=== PATIENT | male | born 1965 | race African-American/Black ===

== ENCOUNTER 2019-01-18 08:39 | Day surgery (SDC) | payer OTHER ==
[2019-01-17 13:03] VITALS: BMI 46.8
[2019-01-18 09:03] LABS: #Eosinphils 0.3 thou/uL (0.0-0.7); #Lymphocytes 2.2 thou/uL (1.20-3.40); #Monocytes 0.7 thou/uL (0.11-0.59); #Neutrophils 3.6 thou/uL (1.40-6.50); %Basophils 0.6 % (0.0-1.0); %Eosinophils 4.2 % (0.0-10.0); %Lymphocytes 32.5 % (21.0-51.0); %Monocytes 9.8 % (0.0-10.0); Hemoglobin 15.9 g/dL (14.0-18.0); Mean Corpuscular HGB CONC 33.9 g/dL (32.0-36.0); Mean Corpuscular Hemoglobin 29.9 pg (27.0-31.0); Mean Platelet Volume 8.3 fL (7.4-10.4); Platelet Count 250 thou/uL (130-400); RBC Distribution Width 12.1 % (11.5-14.5); Red Blood Cell (RBC) Count 5.33 mill/uL (4.70-6.10); White Blood Cell (WBC) Count 6.7 thou/uL (4.8-10.8)
[2019-01-18 09:07] LABS: INR-International Normal Ratio 0.9; Prothrombin Time 12.5 SEC (12.0-14.7)
[2019-01-18 09:52] VITALS: BP 127/96; TEMP 97.2
--- NOTE | 2019-01-18 12:48 | CT ---
CT GUIDED BIOPSY LEFT RENAL MASS: COMPARISON: Outside imaging-Abdomen MRI. FINDINGS: Successful CT-guided biopsy. Lesional tissue is present. A total of two 17-gauge core biopsy sample s were obtained. TECHNIQUE: Consent obtained to perform a CT-guided percutaneous biopsy of a left renal mass. The patient was pl aced in a prone position on the CT gantry. The lesion was identified. The skin was marked. The patient was prepped and draped in a sterile fashion, and 1% lidocaine buffered with sodium bicarbonat e, was used for local anesthesia. Under CT guidance, a 17-gauge metallic trocar was advanced such that the tip was adjacent to the lower pole capsule. Given the patient's body size, the needle could not be purchased into the lower pole of the left kidney. Through this metallic trocar, a total of two 18-gauge core biopsy samples were obtained. Lesional tissue was present. The patient tolerated the procedure well. There was a small amount of perinephric bleeding. Gelfoam pledgets were used to maintain hemostasis. There were no significant post procedure complications. The patient tolerat ed the procedure well. Conscious sedation: Intravenous administration of 100 mcg of fentanyl and 2 mg of Versed. IMPRESSION: Successful CT guided percutaneous biopsy of a mass in the lower pole, left kidney. Lesional tissue w as present. Final pathologic diagnosis is pending. Transcribed Date/Time: 01/18/2019 1:30 PM
== END 2019-01-18 13:00 | disposition home or self-care (01) ==
LOC: CT 08:39
PROVIDERS: ATTEND Urology
PROC: 0TB13ZX Excision of Left Kidney, Percutaneous Approach, Diagnostic (ICD-10-PCS; principal; 2019-01-18)
DX: C64.2 Malignant neoplasm of left kidney, except renal pelvis (principal); I10 Essential (primary) hypertension; E78.00 Pure hypercholesterolemia, unspecified; E66.01 Morbid (severe) obesity due to excess calories; Z68.42 Body mass index [BMI] 45.0-49.9, adult; Z87.891 Personal history of nicotine dependence; Z79.899 Other long term (current) drug therapy
CPT/HCPCS: 50200; 77002; 85025; 85610; 85730; 88305; 88333; 88341; 88342

== ENCOUNTER 2019-01-21 09:43 | Outpatient (CLI) | payer OTHER ==
[~2019-01-21 09:43] MED LIST: Fentanyl 100 MCG/2 ML VIAL ONE; Midazolam HCl 2 mg/2 ml Vial ONE; Sodium Bicarbonate 2.5 MEQ/5 ML VIAL ONE
--- NOTE | 2019-01-21 13:41 | NM ---
WHOLE BODY BONE SCAN: Date: 01/21/19 HISTORY: Other specified disorders of kidney and ureter. Left renal cancer. RADIOPHARMACEUTICAL: 33 mCi technetium-99m MDP injected intravenously. FINDINGS: Increased uptake in the shoulders, acromioclavicular, wrists, and ankle joints are consistent with de generative changes. There are foci of mildly increased uptake in the costovertebral junctions in the thoracic spine consistent with degenerative changes. No other abnormal areas of tracer localization s een in the skeleton to suggest osseous metastatic disease. Tracer excretion is noted into the bladder . IMPRESSION: No scintigraphic evidence of osseous metastatic disease. POS: OFF
== END 2019-01-21 09:44 | disposition home or self-care (01) ==
LOC: NM 09:43
PROVIDERS: ATTEND Urology
DX: N28.89 Other specified disorders of kidney and ureter (principal)
CPT/HCPCS: 78306; A9503; J2250; J3010

== ENCOUNTER 2019-03-08 09:17 | Outpatient (CLI) | payer OTHER ==
--- NOTE | 2019-03-08 16:52 | RAD ---
XR Chest Pa Lat STANDARD HISTORY: Left renal cancer COMPARISON: None FINDINGS: The heart size is normal. The lungs are well expanded without focal areas of consolidation, pneumothorax or pleural effusions. There are degenerative changes in the spine. IMPRESSION: No radiographic evidence of acute cardiopulmonary process.
[2019-03-08 16:56] LABS: Hemoglobin 15.7 g/dL (14.0-18.0); Mean Corpuscular HGB CONC 33.8 g/dL (32.0-36.0); Mean Corpuscular Hemoglobin 29.6 pg (27.0-31.0); Mean Corpuscular Volume 87.6 fL (78.0-98.0); Mean Platelet Volume 8.7 fL (7.4-10.4); Platelet Count 257 thou/uL (130-400); RBC Distribution Width 11.8 % (11.5-14.5); Red Blood Cell (RBC) Count 5.32 mill/uL (4.70-6.10); White Blood Cell (WBC) Count 5.7 thou/uL (4.8-10.8)
[2019-03-08 16:57] LABS: Bacteria/HPF None Seen HPF (None Seen); Bilirubin Negative (Negative); Blood, Urine Negative (Negative); Clarity Clear (Clear); Glucose, Urine (Dipstick) Normal (Negative); Leukocyte Negative Leu/uL (Negative); Nitrite Negative (Negative); Protein, Urine (Dipstick) Negative (Neg-Trace); RBC/HPF 0-3 HPF (0-3); Squamous Epithelial None Seen HPF (0-3); Urobilinogen Normal mg/dL (Less than 2); WBC/HPF 0-3 HPF (0-3)
[2019-03-08 17:03] LABS: INR-International Normal Ratio 0.9; PTT 27.7 SEC (22.9-36.1); Prothrombin Time 12.5 SEC (12.0-14.7)
[2019-03-08 17:18] LABS: Anion Gap 12 mmol/L (10-20); BUN (Urea Nitrogen) 13 mg/dL (8.4-25.7); Calc. Creatinine Clearance 0 mL/min (70-130); Calcium 9.8 mg/dL (7.8-10.44); Carbon Dioxide 25 mmol/L (22-29); Chloride 106 mmol/L (98-107); Estimated GFR-MDRD 87; Glucose 130 mg/dL (70-105); Potassium 4.1 mmol/L (3.5-5.1); Sodium 139 mmol/L (136-145)
--- NOTE | 2019-03-11 16:59 | EKG ---
Test Reason : Blood Pressure : / mmHG Vent. Rate : 103 BPM Atrial Rate : 103 BPM P-R Int : 190 ms QRS Dur : 098 ms QT Int : 326 ms P-R-T Axes : 052 -37 -08 degrees QTc Int : 427 ms Sinus tachycardia Left axis deviation Anterior infarct , age undetermined Abnormal ECG No previous ECGs available Confirmed by ANGELIKA BRITTON, DR. Bowden ([id number]) on 03/11/2019 4:58:40 PM Referred By: KVNG Confirmed By:DR. Dennise CARNEY MD
== END 2019-03-08 09:18 | disposition home or self-care (01) ==
LOC: LABBT 09:17
PROVIDERS: ATTEND Urology
DX: Z01.818 Encounter for other preprocedural examination (principal); C64.9 Malignant neoplasm of unspecified kidney, except renal pelvis
CPT/HCPCS: 71046; 80048; 81001; 85027; 85610; 85730; 87086; 93005; 93010

== ENCOUNTER 2019-12-21 04:01 | Emergency (ER) | payer OTHER | END 2019-12-21 04:58 | disposition home or self-care (01) | LOC: ERS 04:01 | DX: R07.89 Other chest pain (principal); E78.5 Hyperlipidemia, unspecified; E78.00 Pure hypercholesterolemia, unspecified; I10 Essential (primary) hypertension; Z79.899 Other long term (current) drug therapy | CPT/HCPCS: 93005 ==

== ENCOUNTER 2020-06-22 14:58 | Outpatient (CLI) | payer OTHER ==
--- NOTE | 2020-06-22 15:36 | RAD ---
XR Chest Pa Lat STANDARD HISTORY: Renal cell carcinoma COMPARISON: 03/08/2019 FINDINGS: The heart size is normal. The lungs are well expanded without focal areas of consolidation, pneumothorax or pleural effusions. Degenerative changes in the spine are again seen.. IMPRESSION: No radiographic evidence of acute cardiopulmonary process.
--- NOTE | 2020-06-22 16:25 | CT ---
CT ABDOMEN AND PELVIS WITHOUT IV CONTRAST: Indications: Renal cell carcinoma. Patient is status post left nephrectomy due to renal cell carcinom a. Comparison: None FINDINGS: Lung bases are clear. Liver, spleen, and pancreas appear unremarkable. Stomach and duodenum unremarkable. Adrenal glands normal. The small and large bowel loops are unremarkable. Post left nephrectomy changes are noted. Right kidney is unremarkable. No hydronephrosis. No adenopat hy identified. Aorta normal caliber. Images through pelvis show mildly distended bladder which is unremarkable. Prostate size is upper nor mal. Review of the osseous structures show anterior compression deformity of the L2 vertebra. There is mil d posterior listhesis of L2. These changes result in central canal stenosis. Disc bulge at L2-3 with facet hypertrophy results in severe central canal stenosis. There is an umbilical hernia. There is an area of high density within the umbilical hernia sac within the subcutaneous tissues which could represent an area of omental infarction. The hernia sac measure s 4.4 cm. IMPRESSION: 1. Post left nephrectomy change. No adenopathy or evidence of current neoplasm. 2. Anterior wedging of the L2 vertebra with mild posterior listhesis. Severe central canal stenosis i s noted. Recommend clinical correlation and consider further evaluation of the spine as indicated. 3. Umbilical hernia with hernia sac and a focus of high density within the hernia sac as described ab ove. POS: AGW
== END 2020-06-22 14:59 | disposition home or self-care (01) ==
LOC: BICCT 14:58
PROVIDERS: ATTEND Urology
DX: C64.9 Malignant neoplasm of unspecified kidney, except renal pelvis (principal); K42.9 Umbilical hernia without obstruction or gangrene
CPT/HCPCS: 71046; 74176

== ENCOUNTER 2021-06-18 08:37 | Outpatient (CLI) | payer OTHER | END 2021-06-18 08:38 | disposition home or self-care (01) | LOC: BICCT 08:37 | PROVIDERS: ATTEND Urology | DX: C64.9 Malignant neoplasm of unspecified kidney, except renal pelvis (principal) | CPT/HCPCS: 71046; 74176 ==

== ENCOUNTER 2021-08-04 18:59 | Emergency (ER) | payer OTHER ==
[2021-08-04 19:37] LABS: #Eosinphils 0.2 thou/uL (0.0-0.7); #Lymphocytes 1.5 thou/uL (1.20-3.40); #Monocytes 0.5 thou/uL (0.11-0.59); #Neutrophils 2.4 thou/uL (1.40-6.50); %Basophils 1.1 % (0.0-1.0); %Eosinophils 4.9 % (0.0-10.0); %Lymphocytes 31.8 % (21.0-51.0); %Monocytes 10.9 % (0.0-10.0); %Neutrophils 51.4 % (42.0-75.0); Hemoglobin 14.8 g/dL (14.0-18.0); Mean Corpuscular Hemoglobin 30.4 pg (27.0-31.0); Mean Platelet Volume 7.7 fL (7.4-10.4); Platelet Count 212 thou/uL (130-400); RBC Distribution Width 11.7 % (11.5-14.5); Red Blood Cell (RBC) Count 4.86 mill/uL (4.70-6.10); White Blood Cell (WBC) Count 4.6 thou/uL (4.8-10.8)
[2021-08-04 20:03] LABS: ALT (SGPT) 59 U/L (8-55); AST (SGOT) 60 U/L (5-34); Albumin 4.1 g/dL (3.5-5.0); Alkaline Phosphatase 82 U/L (40-110); Anion Gap 14 mmol/L (10-20); BUN (Urea Nitrogen) 19 mg/dL (8.4-25.7); Bilirubin, Total 0.4 mg/dL (0.2-1.2); Calc. Creatinine Clearance 0 mL/min (70-130); Carbon Dioxide 25 mmol/L (22-29); Chloride 103 mmol/L (98-107); Globulin 3.2 g/dL (2.4-3.5); Glucose 122 mg/dL (70-105); Potassium 4.7 mmol/L (3.5-5.1); Protein, Total 7.3 g/dL (6.0-8.3); Sodium 137 mmol/L (136-145)
== END 2021-08-04 21:29 | disposition home or self-care (01) ==
LOC: ERS 18:59
DX: R07.89 Other chest pain (principal); E78.5 Hyperlipidemia, unspecified; I10 Essential (primary) hypertension
CPT/HCPCS: 36415; 71045; 80053; 84484; 85025; 85379; 93005

== ENCOUNTER 2023-05-31 17:00 | Outpatient (CLI) | payer OTHER | END 2023-05-31 17:01 | disposition home or self-care (01) | LOC: SLEEPLAB 17:00 | PROVIDERS: ATTEND Internal Medicine Critical Care Medicine | DX: G47.30 Sleep apnea, unspecified (principal); G47.33 Obstructive sleep apnea (adult) (pediatric) | CPT/HCPCS: 95810 ==

== ENCOUNTER 2023-08-06 17:00 | Outpatient (CLI) | payer OTHER | END 2023-08-06 17:01 | disposition home or self-care (01) | LOC: SLEEPLAB 17:00 | PROVIDERS: ATTEND Physician Assistant | DX: G47.33 Obstructive sleep apnea (adult) (pediatric) (principal); G47.61 Periodic limb movement disorder | CPT/HCPCS: 95811 ==

== ENCOUNTER 2023-09-06 22:59 | Emergency (ER) | payer OTHER ==
[2023-09-06 23:52] LABS: #Basophils 0.1 thou/uL (0.0-0.2); #Eosinphils 0.3 thou/uL (0.0-0.7); #Monocytes 0.8 thou/uL (0.11-0.59); #Neutrophils 3.2 thou/uL (1.40-6.50); %Basophils 0.9 % (0.0-1.0); %Eosinophils 4.7 % (0.0-10.0); %Lymphocytes 31.2 % (21.0-51.0); %Monocytes 12.4 % (0.0-10.0); %Neutrophils 49.5 % (42.0-75.0); Mean Corpuscular HGB CONC 31.7 g/dL (32.0-36.0); Mean Corpuscular Hemoglobin 28.6 pg (27.0-31.0); Mean Corpuscular Volume 90.1 fl (78.0-98.0); Mean Platelet Volume 10.5 fL (7.4-10.4); Platelet Count 251 10x3/uL (130-400); RBC Distribution Width 13.3 % (11.5-14.5); Red Blood Cell (RBC) Count 4.55 mill/uL (4.70-6.10); White Blood Cell (WBC) Count 6.4 10x3/uL (4.8-10.8)
[2023-09-07 00:17] LABS: ALT (SGPT) 24 U/L (8-55); AST (SGOT) 22 U/L (5-34); Albumin 3.6 g/dL (3.5-5.0); Alkaline Phosphatase 81 U/L (40-110); Anion Gap 9 mmol/L (10-20); BUN (Urea Nitrogen) 18 mg/dL (8.4-25.7); Bilirubin, Total 0.3 mg/dL (0.2-1.2); Calc. Creatinine Clearance 0 mL/min (70-130); Calcium 8.8 mg/dL (7.8-10.44); Carbon Dioxide 28 mmol/L (22-29); Chloride 106 mmol/L (98-107); Estimated GFR 58; Globulin 2.8 g/dL (2.4-3.5); Glucose 109 mg/dL (70-105); Potassium 4.2 mmol/L (3.5-5.1); Protein, Total 6.4 g/dL (6.0-8.3); Sodium 139 mmol/L (136-145)
[2023-09-07 01:39] LABS: Bacteria/HPF None Seen HPF (None Seen); Bilirubin Negative (Negative); Blood, Urine Negative (Negative); CAUTI Indications for Culture Pelvic or flank pain; Clarity Clear (Clear); Glucose, Urine (Dipstick) Normal (Negative); Ketone, Urine Negative (Negative); Leukocyte Negative Leu/uL (Negative); Nitrite Negative (Negative); Protein, Urine (Dipstick) Negative (Neg-Trace); RBC/HPF 0-3 HPF (0-3); Specific Gravity, Urine 1.029 (1.002-1.036); Squamous Epithelial 0-3 HPF (0-3); Urobilinogen Normal mg/dL (Less than 2); WBC/HPF 0-3 HPF (0-3)
[2023-09-07 01:41] LABS: Urine Culture Reflex No No
== END 2023-09-07 02:35 | disposition home or self-care (01) ==
LOC: ERS 22:59
DX: N17.9 Acute kidney failure, unspecified (principal); R25.2 Cramp and spasm; E11.9 Type 2 diabetes mellitus without complications; E78.00 Pure hypercholesterolemia, unspecified; I10 Essential (primary) hypertension; Z55.6 Problems related to health literacy; Z79.84 Long term (current) use of oral hypoglycemic drugs; Z87.891 Personal history of nicotine dependence; Z79.899 Other long term (current) drug therapy
CPT/HCPCS: 36415; 80053; 81001; 85025; 93005

== ENCOUNTER 2023-09-26 16:01 | Outpatient (CLI) | payer OTHER | END 2023-09-26 16:02 | disposition home or self-care (01) | LOC: BICCT 16:01 | PROVIDERS: ATTEND Urology | DX: C64.9 Malignant neoplasm of unspecified kidney, except renal pelvis (principal); N28.89 Other specified disorders of kidney and ureter; M48.061 Spinal stenosis, lumbar region without neurogenic claudication; Z90.5 Acquired absence of kidney | CPT/HCPCS: 71046; 74150 ==

== ENCOUNTER 2023-12-26 00:28 | Emergency (ER) | payer OTHER ==
[2023-12-26 01:03] LABS: Bacteria/HPF None Seen HPF (None Seen); Bilirubin Negative (Negative); Blood, Urine 3+ (Negative); CAUTI Indications for Culture Dysuria,urgency,freq; Clarity Clear (Clear); Glucose, Urine (Dipstick) Normal (Negative); Ketone, Urine Negative (Negative); Leukocyte Negative Leu/uL (Negative); Nitrite Negative (Negative); Protein, Urine (Dipstick) Negative (Neg-Trace); RBC/HPF 21-50 HPF (0-3); Specific Gravity, Urine 1.006 (1.002-1.036); Squamous Epithelial 0-3 HPF (0-3); Urobilinogen Normal mg/dL (Less than 2)
[2023-12-26 01:05] LABS: Urine Culture Reflex No No
[2023-12-26 01:14] LABS: #Basophils 0.05 10x3/uL (0.0-0.2); %Basophils 0.6 % (0.0-1.0); %Monocytes 7.7 % (0.0-10.0); %Neutrophils 50.7 % (42.0-75.0); Hematocrit 47.9 % (42.0-52.0); Hemoglobin 16.2 g/dL (14.0-18.0); Mean Corpuscular HGB CONC 33.8 g/dL (32.0-36.0); Mean Corpuscular Hemoglobin 29.2 pg (27.0-31.0); Mean Corpuscular Volume 86.5 fL (78.0-98.0); Mean Platelet Volume 10.3 fL (7.4-10.4); Platelet Count 281 10x3/uL (130-400); Red Blood Cell (RBC) Count 5.54 mill/uL (4.70-6.10)
[2023-12-26 01:25] LABS: ALT (SGPT) 25 U/L (8-55); AST (SGOT) 19 U/L (5-34); Albumin 4.2 g/dL (3.5-5.0); Alkaline Phosphatase 97 U/L (40-110); Anion Gap 16 mmol/L (10-20); BUN (Urea Nitrogen) 19 mg/dL (8.4-25.7); Bilirubin, Total 0.7 mg/dL (0.2-1.2); Calc. Creatinine Clearance 0 mL/min (70-130); Calcium 9.9 mg/dL (7.8-10.44); Carbon Dioxide 20 mmol/L (22-29); Chloride 106 mmol/L (98-107); Estimated GFR 54; Globulin 3.5 g/dL (2.4-3.5); Glucose 97 mg/dL (70-105); Protein, Total 7.7 g/dL (6.0-8.3); Sodium 138 mmol/L (136-145)
== END 2023-12-26 03:02 | disposition home or self-care (01) ==
LOC: ERS 00:28
DX: N30.01 Acute cystitis with hematuria (principal); I10 Essential (primary) hypertension; E11.9 Type 2 diabetes mellitus without complications; Z87.891 Personal history of nicotine dependence
CPT/HCPCS: 36415; 74176; 80053; 81001; 85025; 87086; 93005

== ENCOUNTER 2024-04-29 08:44 | Outpatient (CLI) | payer OTHER | END 2024-04-29 08:45 | disposition home or self-care (01) | LOC: MRI 08:44 | PROVIDERS: ATTEND Psychiatry & Neurology Vascular Neurology | DX: G93.9 Disorder of brain, unspecified (principal) | CPT/HCPCS: 70551 ==